=== PATIENT | female | born 1990 | race African-American/Black ===

== ENCOUNTER 2016-08-16 01:52 | Emergency (ER) | payer MEDICAID, OTHER ==
[2016-08-16 01:54] VITALS: BP 140/82; PULSE 92; RESP 16; TEMP 98.7; O2SAT 99
== END 2016-08-16 02:10 | disposition left against medical advice (07) ==
LOC: NED 01:52
DX: R07.9 Chest pain, unspecified (principal)
CPT/HCPCS: 99281

== ENCOUNTER 2017-02-02 13:52 | Emergency (ER) | payer SELFPAY ==
[2017-02-02 13:54] VITALS: BP 140/84; PULSE 98; RESP 18; TEMP 98.6; O2SAT 100
[2017-02-02] MEDS ORDERED: BENZ100 PO (15:17)
--- NOTE | 2017-02-02 15:17 | PD ---
HPI Chief Complaint: Cold / Flu Symptoms Time Seen by Provider: 15:07 Travel History International Travel<30 days: No Contact w/Intl Traveler<30days: No Traveled to known affect area: No History of Present Illness HPI This is a 26-year-old female who presents with cough, nasal congestion, sore throat, fever or chills. Symptom onset 4 days. She has not attempted any over- the-counter medications for symptom relief. Symptom severity is mild. No aggravating or alleviating factors. She denies chest pain, shortness of breath. [facility] Past Medical History Medical History: Denies Significant Hx ?: Not LMP: 01/03/2017 Past Surgical History Surgical History: No Previous Surgery Social History Alcohol Use: No Tobacco Use: No Substance Use: No Allergies-Medications (Allergen,Severity, Reaction): Coded Allergies: No Known Allergies (Unverified , 02/02/17) Reported Meds & Prescriptions Reported Meds & Active Scripts Active No Active Prescriptions or Reported Medications Review of Systems Except as stated in HPI: all other systems reviewed are Neg General / Constitutional: No: Fever HENT: Positive: Sore Throat, Congestion Cardiovascular: No: Chest Pain or Discomfort Respiratory: Positive: Cough Gastrointestinal: No: Abdominal Pain Physical Exam Narrative GENERAL: Alert well-appearing female in no distress. SKIN: Warm and dry. No rash. HEAD: Normocephalic. EYES: No injection or drainage. throat: Mild pharyngeal erythema. No tonsillar hypertrophy or exudate. NECK: Supple, trachea midline. No JVD or lymphadenopathy. No meningismus. CARDIOVASCULAR: Regular rate and rhythm without murmurs, gallops, or rubs. RESPIRATORY: Breath sounds equal bilaterally. No accessory muscle use. GASTROINTESTINAL: Abdomen soft, non-tender, nondistended. MUSCULOSKELETAL: No cyanosis, or edema. BACK: Nontender without obvious deformity. No CVA tenderness. Data Data Last Documented VS Vital Signs Date Time Temp Pulse Resp B/P (MAP) Pulse Ox O2 Delivery O2 Flow Rate FiO2 02/02/17 13:54 98.6 98 18 140/84 (102) 100 Room Air MDM Medical Decision Making Medical Screen Exam Complete: Yes Emergency Medical Condition: Yes Differential Diagnosis Viral URI, influenza, bronchitis, pneumonia Narrative Course 26-year-old female here with mild URI-like symptoms. She is nontoxic appearing. Her vital signs are stable. Symptomatic treatment was discussed. Diagnosis Primary Impression: Viral URI Referrals: [facility] Additional Instructions: Stay well hydrated. Take [id number] Tylenol or ibuprofen as needed for pain and fevers. Take the Tessalon Perles as needed for cough. Follow-up with her doctor Scripts Benzonatate (Tessalon Perles) 100 Mg Cap 100 MG PO TID Y for COUGH for 5 Days, CAP 0 Refills Prov: Myriam Esparza 02/02/17 Disposition: 01 DISCHARGE HOME Condition: Stable Myriam Esparza Feb 02, 2017 15:17
== END 2017-02-02 15:23 | disposition home or self-care (01) ==
LOC: NEPK 13:52
DX: J06.9 Acute upper respiratory infection, unspecified (principal)
CPT/HCPCS: 99283